=== PATIENT | male | born 2000 | race Caucasian/White ===

== ENCOUNTER 2019-03-03 09:58 | Outpatient (CLI) | payer OTHER ==
--- NOTE | 2019-03-03 10:35 | RAD ---
EXAM: CHEST TWO VIEWS: History: Dyspnea. Comparison: 12-14-18 FINDINGS: Heart size is normal. No confluent pneumonia, overt edema, or pleural effusion. Resolution of the pre viously noted right lower lobe pneumonia. IMPRESSION: No acute intrathoracic disease. No evidence for pneumonia. POS: [facility]
== END 2019-03-03 09:59 | disposition home or self-care (01) ==
LOC: RAD 09:58
PROVIDERS: ATTEND Internal Medicine Critical Care Medicine
DX: R06.00 Dyspnea, unspecified (principal)
CPT/HCPCS: 71046